=== PATIENT | male | born 1950 | race Caucasian/White ===

== ENCOUNTER 2020-01-21 09:24 | Outpatient (CLI) | payer MEDICARE, BC, SELFPAY ==
--- NOTE | 2020-01-21 12:58 | ONCRAD EPV_ITS ---
Radiation Oncology Established Patient Visit Patient: Jesús MR#: [id number] : 1950> Age: 69> Sex: Male> Dictated by: Dr. Luciano Blanca Date of Service: 01/21/2020 Referring Physician(s) : Dr. Issa Garcia Diagnosis: C61 - Malignant neoplasm of prostate, Diagnosed 06/28/2017 (Active) Stage X, Radiotherapy to Date: Course: C1, Treatment Site: [id number]+[id number], Ref. ID: [id number], Energy: 6X, Dose/Fx (cGy): 200, #Fx: , Dose Correction (cGy): 0, Total Dose (cGy): 5,400, Start Date: 09/06/2017, End Date: 10/13/2017, Elapsed Days: 37 Treatment Site: [id number], Ref. ID: [id number], Energy: 6X, Dose/Fx (cGy): 200, #Fx: , Dose Correction (cGy): 0, Total Dose (cGy): 2,400, Start Date: 10/14/2017, End Date: 10/31/2017, Elapsed Days: 17 Chief Complaint / History of Present Illness: Since last seen in June 2019 he has had intermittent rectal bleeding which can occur for 2 days and then stop for an entire month. He has no pain diarrhea or constipation. Overall pattern is unchanged. Previous colonoscopy was satisfactory by his report when done in 2013. Urinary function is stable with increase in frequency improved since completing treatment with less urgency and less frequency. Stable 2 to 3 x nocturia. He has good urinary flow and no bleeding. Overall his weight appetite and energy level are all stable. Current Medications: PriLOSEC. Allergies: No Known Allergies Current Complaints / Review of Systems: Constitutional - Complains of mild fatigue. Denies lack of appetite, fever and night sweats. Eyes - Denies blurred vision. ENMT - Denies dysphagia, ear pain, mouth dryness, stomatitis, altered taste and tinnitus. Neck - Denies neck pain. Integumentary - Denies rash. Cardiovascular - Denies arrhythmias and chest pain. Respiratory - Denies cough, dyspnea and wheezing. Gastrointestinal - Complains of melena / GI bleeding that is characterized by bright blood which happens off and on for the past 2 years. Denies abdominal pain, constipation, diarrhea, hemorrhoids, nausea and vomiting. Genitourinary (M) - Complains of nocturia gets up 2 to 3 times per night. Denies dysuria, frequency, hematuria and urgency. Musculoskeletal - Complains of joint pain left shoulder and right index finger. Denies bone pain and muscle weakness. Neurologic - Denies dizziness, abnormal gait and headaches. Endocrine - Denies diabetes and thyroid disease. Hematologic/Lymphatic - Denies tender or enlarged lymph nodes.. Vital Signs: Performed on 01/21/2020 9:46 AM BMI - 22.169 kg/m2, Height - 68.00 in, Weight - 145.8 lbs, Temperature - 97.4 f, Pulse - 52, Respiration - 18, O2 Sat - 97 %, Pain - 0 and BP - 104/ 66 mm(hg). Physical Exam: General: Alert and oriented x 3. No acute distress. HEENT: Normocephalic, atraumatic. Extraocular Movements Intact: Pupils Equal, Round, Reactive to Light and Accommodation: Sclerae anicteric. Oral cavity is clear without lesions, masses or ulcers. NECK: Supple without supraclavicular or jugular lymphadenopathy. LUNGS: Clear to auscultation bilaterally without rales, rhonchi or wheeze. HEART: Regular rate and rhythm, normal S1 and S2 without murmur, gallop or rub. MUSCULOSKELETAL: No tenderness or percussion pain over the axial skeleton, scapulae or pelvis. ABDOMEN: Soft, nontender, nondistended without masses or organomegaly. Bowell sounds are present. EXTREMITIES: No peripheral edema is identified. Limited motor and sensory examination are grossly intact and symmetric bilaterally. NEUROLOGIC: Cranial nerves II ???XII are grossly intact. Normal sensation, strength 5/5 in all extremities, normal gait, no ataxia. Rectal examination revealed smooth flat prostate no masses tenderness. No rectal masses. No bleeding encountered. Performance Status: 100 LabPSA at diagnosis 7.4 follow-up PSA March 2018 1.July 0.December 0.15 June 2019 0.28 and now January 10, 2020 0.24. Pathology: Primary, c61 - malignant neoplasm of prostate, Diagnosed 06/28/2017 (active) stage x. Imaging: See HPI Impression: Favorable he has asymptomatic stage I adenocarcinoma the prostate. He has done well with radiation. His low PSA level continues to decline. Rectal bleeding likely due to telangiectatic effect on the anterior rectal wall. However his last colonoscopy is 6 years ago. Follow-up colonoscopy is strongly recommended to verify that no other pathology is present. We will assist in scheduling follow-up colonoscopy. He desired no additional treatment for this and declined rectal steroid therapy. We will see him in follow-up in 1 year with a PSA level. Signed by: 01/21/2020 12:57:30 PM <<Signature on File>> Time spent with patient: CPT Code: CPT Code:
== END 2020-01-21 09:25 | disposition home or self-care (01) ==
LOC: ONCMED 09:34
PROVIDERS: Family Provider Family Medicine; PCP Family Medicine; Visit Provider Radiology Radiation Oncology
DX: C61 Malignant neoplasm of prostate (principal); K62.5 Hemorrhage of anus and rectum; Z92.3 Personal history of irradiation
CPT/HCPCS: 99213

== ENCOUNTER → 2021-05-09 10:44 | Outpatient (BNVA) | payer MEDICARE, BC, SELFPAY | PROVIDERS: Family Provider Family Medicine; PCP Family Medicine; Visit Provider Emergency Medicine | DX: Z20.822 Contact with and (suspected) exposure to COVID-19 (principal) | CPT/HCPCS: 87635 ==

== ENCOUNTER 2022-01-21 10:01 | Outpatient (CLI) | payer MEDICARE, BC, SELFPAY ==
--- NOTE | 2022-01-21 10:08 | CT_ITS ---
WS: [id number] CT HEAD TECHNIQUE: Noncontrast CT of the head obtained from the skullbase to the vertex. CLINICAL INFORMATION: BEIGN PAROXYSMAL VERTIGO/COGNITIVE FUNCTIONS AWARENESS COMPARISON: 4 ,018 DLP: 971.[address] scans at [facility] use at least one of these dose optimization techniques: automated e xposure control; mA and/or kV adjustment per patient size (includes targeted exams where dose is matc hed to clinical indication); or iterative reconstruction. FINDINGS: No evidence of intracranial hemorrhage or mass effect. Ventricular system and basal cisterns are hines nt. Mild small vessel changes with mild parenchymal volume loss. 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 No extra-axial fluid collections. No evidence of mass or mass effect. Paranasal sinuses and mastoid air cells are well aerated. .Normal visualized soft tissues. CT/CT head wo con* [id number] IMPRESSION: 1. No evidence of intracranial hemorrhage or mass effect. 2. Mild small vessel changes. Mild parenchymal volume loss. 3. 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 4. No acute intracranial findings.
== END 2022-01-21 10:02 | disposition home or self-care (01) ==
LOC: RAD 10:07
PROVIDERS: PCP Family Medicine; Visit Provider Nurse Practitioner
DX: H81.10 Benign paroxysmal vertigo, unspecified ear (principal); R41.89 Other symptoms and signs involving cognitive functions and awareness; I63.81 Other cerebral infarction due to occlusion or stenosis of small artery
CPT/HCPCS: 70450

== ENCOUNTER → 2023-12-14 13:19 | Outpatient (BNVA) | payer MEDICARE, SELFPAY | PROVIDERS: PCP Family Medicine; Visit Provider Dermatology | DX: L82.1 Other seborrheic keratosis (principal); L81.4 Other melanin hyperpigmentation; L57.8 Other skin changes due to chronic exposure to nonionizing radiation; L57.0 Actinic keratosis; Z85.828 Personal history of other malignant neoplasm of skin | CPT/HCPCS: 17000; 99203 ==

== ENCOUNTER → 2024-04-05 15:37 | Outpatient (BNVA) | payer MEDICARE, SELFPAY | PROVIDERS: PCP Family Medicine; Visit Provider Dermatology | DX: L57.0 Actinic keratosis (principal); L82.0 Inflamed seborrheic keratosis; L82.1 Other seborrheic keratosis; L81.4 Other melanin hyperpigmentation | CPT/HCPCS: 17000; 17110; 99213 ==

== ENCOUNTER → 2024-10-08 07:47 | Outpatient (BNVA) | payer MEDICARE, SELFPAY | PROVIDERS: PCP Family Medicine; Visit Provider Nurse Practitioner Family | DX: L82.1 Other seborrheic keratosis (principal); L81.4 Other melanin hyperpigmentation; Z08 Encounter for follow-up examination after completed treatment for malignant neoplasm; Z85.828 Personal history of other malignant neoplasm of skin; B07.8 Other viral warts; L53.8 Other specified erythematous conditions; L29.89 Other pruritus; R20.8 Other disturbances of skin sensation; L57.0 Actinic keratosis | CPT/HCPCS: 17000; 17110; 99213 ==

== ENCOUNTER → 2025-04-09 07:49 | Outpatient (BNVA) | payer MEDICARE, SELFPAY | PROVIDERS: PCP Family Medicine; Visit Provider Nurse Practitioner Family | DX: L57.0 Actinic keratosis (principal); L81.4 Other melanin hyperpigmentation; Z08 Encounter for follow-up examination after completed treatment for malignant neoplasm; Z85.828 Personal history of other malignant neoplasm of skin | CPT/HCPCS: 17000; 99214 ==

== ENCOUNTER → 2025-05-09 08:02 | Outpatient (BNVA) | payer MEDICARE, SELFPAY | PROVIDERS: PCP Family Medicine; Visit Provider Nurse Practitioner Family | DX: L57.0 Actinic keratosis (principal); L81.4 Other melanin hyperpigmentation; Z08 Encounter for follow-up examination after completed treatment for malignant neoplasm; Z85.828 Personal history of other malignant neoplasm of skin; L82.0 Inflamed seborrheic keratosis; L29.89 Other pruritus; R20.9 Unspecified disturbances of skin sensation; R20.8 Other disturbances of skin sensation | CPT/HCPCS: 17110; 99213 ==